=== PATIENT | female | born 1995 | race Caucasian/White ===

== ENCOUNTER → 2020-08-13 | Outpatient (CLI) | payer OTHER, BC ==
[~2020-08-13] MED LIST: FAMO-79 PO; Prenatal PO
== END | disposition home or self-care (01) ==
LOC: RAD 10:04
PROVIDERS: ATTEND Obstetrics & Gynecology
DX: Z33.1 Pregnant state, incidental (principal); N83.202 Unspecified ovarian cyst, left side; R19.09 Other intra-abdominal and pelvic swelling, mass and lump
CPT/HCPCS: 72195

== ENCOUNTER → 2020-08-14 | Outpatient (CLI) | payer OTHER, BC ==
[2020-08-14 10:13] LABS: BASOPHILS % (AUTO) 0 % (0-1); EOSINOPHILS % (AUTO) 1 % (1-7); LYMPHOCYTES % (AUTO) 12 % (22-44); MEAN PLATELET VOLUME 8.6 fL (7.4-10.4); MONOCYTES % (AUTO) 10 % (2-9); NEUTROPHILS % (AUTO) 78 % (42-75); PLATELET COUNT 202 x10^3/uL (130-400)
[2020-08-14 10:17] LABS: INTERNATIONAL NORMALIZED RATIO 0.93 (0.93-1.1)
[2020-08-14 10:18] LABS: ALANINE AMINOTRANSFERASE 20 U/L (12-78); ANION GAP 10 mmol/L (5-15); CALCIUM 9.4 mg/dL (8.5-10.1); CHLORIDE 106 mmol/L (98-107); CREATININE 0.49 mg/dL (0.55-1.02)
[2020-08-14 10:20] LABS: ALKALINE PHOSPHATASE 64 U/L (45-117); BILIRUBIN,TOTAL 0.4 mg/dL (0.2-1.0); TOTAL PROTEIN 6.7 g/dL (6.4-8.2)
== END | disposition home or self-care (01) ==
LOC: STAR 08:10
PROVIDERS: ATTEND Obstetrics & Gynecology
DX: Z01.818 Encounter for other preprocedural examination (principal); R19.09 Other intra-abdominal and pelvic swelling, mass and lump; N83.202 Unspecified ovarian cyst, left side; Z20.822 Contact with and (suspected) exposure to COVID-19
CPT/HCPCS: 36415; 80053; 85025; 85610; 85730; 86301; 86304; 93005; U0003; U0005

== ENCOUNTER 2020-08-18 05:10 | Inpatient (IN) | payer OTHER, BC ==
[~2020-08-18] VITALS: Ht 170.2 cm; Wt 93.6 kg
[2020-08-18 06:21] VITALS: BP 109/70
[2020-08-18] MEDS ORDERED: CEFOTETAN PMX 2GM/50ML 50 ML IVPB ONE (06:30)
[2020-08-18] MEDS ORDERED: LACTATED RINGERS 1,000 ML IV SCH ×2 (06:30→10:00)
[2020-08-18] MEDS ORDERED: CHLORHEXIDINE 15 ML UDC PO ONE (06:30)
[2020-08-18] MEDS ORDERED: EPINEPHRINE 1 MG/ML, 1ML ONE (06:46)
[2020-08-18] MEDS ORDERED: BUPIVACAINE/PF 0.25% ONE (06:46)
[2020-08-18] MEDS ORDERED: PROPOFOL 200 ML ONE (07:24)
[2020-08-18] MEDS ORDERED: EPHEDRINE 50 MG/ML, 1ML ONE (07:50)
[2020-08-18] MEDS ORDERED: PHENYLEPHRINE 10 MG/ML ONE (07:50)
[2020-08-18] MEDS ORDERED: ROCURONIUM 10 MG/ML,10ML ONE (07:50)
[2020-08-18] MEDS ORDERED: SUCCINYLCHOLINE 20 MG/ML, 10ML ONE (07:50)
[2020-08-18] MEDS ORDERED: FENTANYL PF 250 MCG/5ML ONE (07:53)
[2020-08-18] MEDS ORDERED: morphine SULFATE 10 MG/ML, 1ML IVPush PRN (10:00)
[2020-08-18] MEDS ORDERED: ACETAMINOPHEN 325 MG TABLET PO PRN ×2 (10:00→10:30)
[2020-08-18] MEDS ORDERED: FENTANYL PF 100 MCG/2ML ONE (10:29)
[2020-08-18] MEDS ORDERED: OXYcodone 5 MG/5 ML ORAL.SOL UDC ONE (10:29)
[2020-08-18] MEDS ORDERED: ACETAMINOPHEN 650 MG/20.3 ML UDC ONE (10:29)
[2020-08-18] MEDS ORDERED: hydrALAzine 20 MG/ML, 1ML IV PRN (10:30)
[2020-08-18] MEDS ORDERED: LABETALOL 5MG/ML, 20ML IV PRN (10:30)
[2020-08-18] MEDS ORDERED: PROMETHAZINE 25MG TABLET PO PRN (10:30)
[2020-08-18] MEDS ORDERED: ALBUTEROL SULFATE 2.5 MG/3 ML NPPB PRN (10:30)
[2020-08-18] MEDS: FENTANYL PF 100 MCG/2ML IV PRN ×3 (10:30→10:40)
[2020-08-18] MEDS ORDERED: PROMETHAZINE 25 MG/ML, 1ML IV PRN (10:30)
[2020-08-18] MEDS ORDERED: HYDROmorphone 2 MG/ML, 1ML IVPush PRN (10:30)
[2020-08-18] MEDS ORDERED: OXYcodone 5 MG/5 ML ORAL.SOL UDC PO PRN (10:30)
[2020-08-18] MEDS ORDERED: ONDANSETRON 2MG/ML, 2ML IVPush PRN (10:30)
[2020-08-18] MEDS ORDERED: INDOMETHACIN 50 MG CAPSULE ONE (12:23)
[2020-08-18] MEDS ORDERED: SIMETHICONE 80 MG CHEW TAB ONE (12:23)
[2020-08-18] MEDS: SIMETHICONE 80 MG CHEW TAB PO SCH ×3 (12:30→22:04)
[2020-08-18] MEDS: INDOMETHACIN 50 MG CAPSULE PO SCH ×3 (12:30→23:33)
[2020-08-18] MEDS: APAP/CODEINE 300/30MG TABLET PO PRN ×2 (18:10→22:04)
[2020-08-18 20:35] VITALS: BP 116/57
[2020-08-18] MEDS: FAMOTIDINE 20 MG TABLET PO SCH (21:19)
[2020-08-18] MEDS: DOCUSATE 100 MG CAPSULE PO SCH (21:19)
[2020-08-18] MEDS ORDERED: OXYcodone/APAP 5/325MG TABLET ONE (23:27)
[2020-08-18] MEDS ORDERED: OXYcodone/APAP 5/325MG TABLET PO PRN ×2 (23:30)
[2020-08-19 05:09] LABS: BASOPHILS % (AUTO) 0 % (0-1); EOSINOPHILS % (AUTO) 0 % (1-7); LYMPHOCYTES % (AUTO) 8 % (22-44); MEAN CORPUSCULAR HEMOGLOBIN 34.6 pg (27.0-34.8); MONOCYTES % (AUTO) 8 % (2-9); NEUTROPHILS % (AUTO) 84 % (42-75); PLATELET COUNT 190 x10^3/uL (130-400); RED BLOOD COUNT 3.13 x10^6/uL (3.82-5.3); RED CELL DISTRIBUTION WIDTH 13.9 % (9.6-15.2)
[2020-08-19 05:17] LABS: ANION GAP 9 mmol/L (5-15); CALCIUM 8.5 mg/dL (8.5-10.1); CHLORIDE 103 mmol/L (98-107); CREATININE 0.51 mg/dL (0.55-1.02)
[2020-08-19] MEDS: INDOMETHACIN 50 MG CAPSULE PO SCH ×3 (05:51→18:41)
[2020-08-19] MEDS: SIMETHICONE 80 MG CHEW TAB PO SCH ×3 (05:51→18:41)
[2020-08-19 08:34] VITALS: BP 105/55
[2020-08-19] MEDS: SODIUM CHLORIDE FLUSH 3ML SYRINGE IVF SCH ×2 (09:13→20:46)
[2020-08-19] MEDS: FAMOTIDINE 20 MG TABLET PO SCH ×2 (09:13→20:45)
[2020-08-19] MEDS: DOCUSATE 100 MG CAPSULE PO SCH ×2 (09:13→20:45)
[2020-08-19] MEDS: PRENATAL VIT/IRON/FA 1 EACH TABLET PO SCH (09:13)
[2020-08-19 09:17] VITALS: BP 113/59
[2020-08-19 12:11] VITALS: BP 105/58
[2020-08-19] MEDS: APAP/CODEINE 300/30MG TABLET PO PRN (20:49)
[2020-08-20] MEDS: INDOMETHACIN 50 MG CAPSULE PO SCH ×3 (05:53→12:15)
[2020-08-20] MEDS: DOCUSATE 100 MG CAPSULE PO SCH (08:00)
[2020-08-20] MEDS: FAMOTIDINE 20 MG TABLET PO SCH (08:00)
[2020-08-20] MEDS: PRENATAL VIT/IRON/FA 1 EACH TABLET PO SCH (08:00)
[2020-08-20] MEDS ORDERED: MAGNESIUM HYDROXIDE 8%, 30ML UDC ONE (08:12)
[2020-08-20] MEDS: MAGNESIUM HYDROXIDE 8%, 30ML UDC PO PRN ×2 (08:15→12:35)
== END 2020-08-20 13:00 | disposition home or self-care (01) | DRG 819 ==
LOC: OR 05:10 → ORIP 09:50 → LDIP 11:28
PROVIDERS: ADMIT Obstetrics & Gynecology; ATTEND Obstetrics & Gynecology
PROC: 3E0T3BZ Introduction of Anesthetic Agent into Peripheral Nerves and Plexi, Percutaneous Approach (ICD-10-PCS; 2020-08-18)
PROC: 0UB10ZZ Excision of Left Ovary, Open Approach (ICD-10-PCS; principal; 2020-08-18 07:30)
PROC: 0UJ34ZZ Inspection of Ovary, Percutaneous Endoscopic Approach (ICD-10-PCS; 2020-08-18 07:30)
DX: O34.82 Maternal care for other abnormalities of pelvic organs, second trimester (principal); N80.1 Endometriosis of ovary; K66.0 Peritoneal adhesions (postprocedural) (postinfection); N83.202 Unspecified ovarian cyst, left side; Z3A.25 25 weeks gestation of pregnancy; O99.612 Diseases of the digestive system complicating pregnancy, second trimester
CPT/HCPCS: 36415; 80048; 85025; 86850; 86900; 86923; 88305; 88331; G0378; J0171; J2704; J3010; C1765; J0330; J2270; J2370; J7120